=== PATIENT | male | born 1960 | race African-American/Black ===

== ENCOUNTER 2025-06-03 22:46 | Emergency (ER) | payer OTHER ==
[2025-06-03 23:35] LABS: #Basophils Less than 0.03 10x3/uL (0.0-0.2); #Eosinophils Less than 0.03 10x3/uL (0.0-0.5); #Monocytes 0.46 10x3/uL (0.0-1.1); #Neutrophils 2.52 10x3/uL (1.5-8.4); %Basophils 0.2 % (0.0-2.0); %Eosinophils 0.5 % (0.0-6.0); %Lymphocytes 30.1 % (18.0-47.0); %Monocytes 10.6 % (0.0-10.0); %Neutrophils 58.4 % (40.0-75.0); Hematocrit 45.1 % (38.8-50.0); Hemoglobin 15.7 g/dL (13.5-17.5); Mean Corpuscular Hemoglobin 30.6 pg (27.0-33.0); Mean Corpuscular Volume 87.9 fL (81.2-95.1); Platelet Count 231 10x3/uL (150-450); Red Blood Cell (RBC) Count 5.13 10x6/uL (4.32-5.72); White Blood Cell (WBC) Count 4.32 10x3/uL (3.5-10.5)
[2025-06-03 23:49] LABS: ALT (SGPT) 12 U/L (Less than 45); AST (SGOT) 16 U/L (11-34); Albumin 3.4 g/dL (3.1-4.5); Alkaline Phosphatase 56 U/L (40-110); Anion Gap 12 mmol/L (10-20); BUN (Urea Nitrogen) 15 mg/dL (8.4-25.7); Bilirubin, Total 0.6 mg/dL (0.3-1.2); Calc. Creatinine Clearance 0 mL/min (70-130); Calcium 9.0 mg/dL (7.8-10.44); Carbon Dioxide 24 mmol/L (23-31); Chloride 108 mmol/L (98-107); Globulin 2.6 g/dL (2.4-3.5); Glucose 116 mg/dL (80-115); Magnesium 1.9 mg/dL (1.6-2.6); Potassium 3.9 mmol/L (3.5-5.1); Sodium 140 mmol/L (136-145)
[2025-06-03 23:55] LABS: Troponin I 0.027 ng/mL (< 0.028)
[2025-06-04] MEDS ORDERED: Furosemide 40 MG TAB ONE (00:40)
== END 2025-06-04 00:11 | disposition home or self-care (01) ==
LOC: CSHERS 22:46
DX: I11.0 Hypertensive heart disease with heart failure (principal); I50.9 Heart failure, unspecified; I49.3 Ventricular premature depolarization; R06.02 Shortness of breath
CPT/HCPCS: 36415; 71045; 80053; 83735; 83880; 84484; 85025; 93005